=== PATIENT | male | born 1990 | race Caucasian/White ===

== ENCOUNTER 2016-12-01 21:45 | Emergency (ER) | payer SELFPAY ==
[2016-12-01] MEDS: LORazepam 1 MG TABLET PO ONE (22:44)
[2016-12-01] MEDS ORDERED: LORazepam 1 MG TABLET PO ONE (22:45)
--- NOTE | 2016-12-01 22:51 | ED Physician Documentation ---
Psychological Disorders - HISTORIAN Historian: patient, parent - HPI Stated Complaint: Anxiety/Suicidal Ideation Chief Complaint: General Adult Additional Information: this pt appeas w/his mother c/o anxiety depression and has even thought of suicide. he has not contemplated such and has never made any plans of such. he had neuro psyche in pt counselling as child-tried several meds but none seemed to help much. he reports good relationship w/mother and w/step father. his bio father has been out of the picture for many yrs and he has no contact w/ him. he is gainfully employed. he states the anxiety he thinks is no girlfriend and that there are 10 people in the house some of them non family members thet mom has ataken just rashid help them out until they got on their feet and on own support Onset: days ago (intermittent for his lifetime but that he does not sleep well and doesnt feel rested when he arises in the am) Duration: intermittent Intent: prior thoughts of suicide (no plans and such thoughts are very infrequent-that they are absent now--mom agrees and appears very supportive). denies: suicide, wants to escape Severity: mild, moderate Situational Problems: Yes Related To: other (problem somewhat nonspecific and congenital-though he describes his childhood as enjoyable and productive) - Associated Symptoms Symptoms: depressed, frustrated Mechanism: other (has never given thought to a plan) - ROS CONST: no problems. denies: recent illness, fever, sweating NEURO/PSYCH: none EYES/ENT: none CVS/RESP: none GI/: nausea, vomiting, abdominal pain - PAST HX Psychiatric problems: depression, other (anxiety). denies: prior suicide attempt Surgical History: noncontributory Allergies/Adverse Reactions: Allergies Allergy/AdvReac Type Severity Reaction Status Date / Time No Known Allergies Allergy Verified 12/01/16 22:32 Home Medications: Ambulatory Orders Medication Instructions Recorded NK [NK] 08/08/12 - Social HX Smoking History: greater than 1 pack/day Marital Status: single Drug Use: none - Family HX Family HX: denies: other - VITAL SIGNS Vital Signs: Vital Signs Temp Pulse Resp BP Pulse Ox 115 H 18 162/91 100 12/01/16 21:45 12/01/16 21:45 12/01/16 21:45 12/01/16 21:45 - REVIEWED ASSESSMENTS Nursing Assessment Reviewed: Yes Vitals Reviewed: Yes ED Results Lab/Radiology - Orders Orders: ED Orders Category Date Time Status LORazepam [Ativan] Med 12/01/16 22:44 Once 1 mg PO NOW ONE Psych Physical Exam - Physical Exam General Appearance: mild distress ENT: nml ENT inspection Eyes: EOM's intact Mental Status: mood/affect nml, depressed affect / mood. No: hostile, non- communicative, tearful, disoriented Suicide Attempts: other (none) Orientation: nml x3 Cranial Nerves: CN's intact as tested Sensory, Motor: nml motor response, nml sensory response, nml gait Neck/Back: normal inspection, supple. No: thyromegaly Respiratory: no resp distress, chest non-tender, breath sounds normal CVS: reg rate & rhythm, heart sounds normal Abdomen: non-tender Skin: warm/dry, normal color. No: cyanosis, diaphoresis, jaundice Extremities: non-tender, normal range of motion Discharge Clincal Impression: chronic anxiety syndrome, associated depression , self described shyness Referrals: Melissa Boone MD [Primary Care Provider] - 2 Days Home Medications: Ambulatory Orders NK [NK] 08/08/12 Comments: short trial meds for sleep and anxiety w/understanding he will seek counselling at [facility]-pt is active in [facility]- or professional counsellor. mom agrees w/ plan and feels he is not threat to self or others Condition: Good Disposition: 01 HOME, SELF-CARE Decision to Admit: NO Decision Time: 23:01
[2016-12-01 22:53] VITALS: BP 158/68
== END 2016-12-01 22:45 | disposition home or self-care (01) ==
LOC: ED 21:45
DX: F41.8 Other specified anxiety disorders (principal); F32.89 Other specified depressive episodes
CPT/HCPCS: 99283